=== PATIENT | female | born 1990 | race Two or more races ===

== ENCOUNTER 2021-06-25 09:19 | Observation (INO) | payer MEDICAID ==
[~2021-06-25] VITALS: Ht 170.2 cm; Wt 95.3 kg
[2021-06-25] MEDS ORDERED: PREN-96 PO (10:40)
== END 2021-06-25 13:41 | disposition home or self-care (01) ==
LOC: XYW 09:19 → LDRP 10:10
PROVIDERS: ADMIT Obstetrics & Gynecology; ATTEND Obstetrics & Gynecology
DX: O62.9 Abnormality of forces of labor, unspecified (principal); Z3A.36 36 weeks gestation of pregnancy
CPT/HCPCS: 59025; 76818; 81002; 93306; 94760; G0378; G0379

== ENCOUNTER 2021-07-12 23:38 | Observation (INO) | payer MEDICAID ==
[~2021-07-12] VITALS: Ht 170.2 cm; Wt 96.6 kg
[~2021-07-12 23:38] MED LIST: PREN-96 PO
== END 2021-07-13 00:30 | disposition home or self-care (01) ==
LOC: LDRP 23:38
PROVIDERS: ADMIT Obstetrics & Gynecology; ATTEND Obstetrics & Gynecology
DX: O62.9 Abnormality of forces of labor, unspecified (principal); Z3A.38 38 weeks gestation of pregnancy
CPT/HCPCS: 59025; 81002; 94760; G0378

== ENCOUNTER 2021-07-21 11:06 | Observation (INO) | payer MEDICAID ==
[~2021-07-21] VITALS: Ht 30.5 cm; Wt 0.5 kg
[2021-07-21] MEDS ORDERED: LACTATED RINGER'S 1,000 ML IV ONE (14:45)
[2021-07-21 15:25] LABS: Urine WBC None Seen /hpf (0 - 5)
[2021-07-21 15:36] LABS: Urine Bacteria NONE SEEN /hpf (None Seen); Urine Blood Negative /uL (Negative); Urine Specific Gravity 1.001 (1.001-1.035)
[2021-07-21 15:50] LABS: Alcohol, Urine < 3.0 mg/dL (0-10); Amphetamine Screen, Urine NEGATIVE (NEGATIVE); Barbiturate Scree,Urine NEGATIVE (NEGATIVE); Benzodiazephine Screen, Urine NEGATIVE (NEGATIVE); Cannabinoid Screen, Urine NEGATIVE (NEGATIVE); Cocaine Screen, Urine NEGATIVE (NEGATIVE); Opiate Scree,Urine NEGATIVE (NEGATIVE); Phencyclidine Screen, Urine NEGATIVE (NEGATIVE)
[2021-07-21 15:56] LABS: Basophils # (auto) 0 10 ^3/uL (0-0.2); Basophils % (auto) 0.7 % (0.0-2.0); Eosinophils # (auto) 0.1 10 ^3/uL (0-0.8); Hematocrit 32.4 % (36.0-46.0); Hemoglobin 11.3 g/dL (12.2-16.2); Lymphocytes # (auto) 1.6 10 ^3/uL (0.4-5.4); Lymphocytes % (auto) 22.8 % (10.0-50.0); Mean Corpuscular Hemoglobin 27.5 pg (28.0-32.0); Mean Corpuscular Hgb Conc. 34.9 g/dL (32.0-36.0); Mean Corpuscular Volume 78.7 fL (80.0-100.0); Monocytes # (auto) 0.3 10 ^3/uL (0-1.3); Monocytes % (auto) 4.6 % (0.0-12.0); Neutrophils # (auto) 4.9 10 ^3/uL (1.6-8.6); Neutrophils % (auto) 70.9 % (37.0-80.0); Nucleated Red Blood Cells % 0.1 %; Red Blood Cells 4.12 10^6/uL (4.0-5.20); Red Cell Distribution Width 15.1 % (11.8-14.3); White Blood Cell 6.9 10^3/uL (4.4-10.8)
[2021-07-21 16:12] LABS: Albumin 2.5 g/dL (3.4-5.0); Calcium 8.5 mg/dL (8.5-10.1)
[2021-07-21 16:15] LABS: Bilirubin, Total 0.3 mg/dL (0.2-1.0)
[2021-07-21 16:21] LABS: INR 0.97 (0.9-1.15); Partial Thromboplastin Time 27.6 sec (23.6-33.0)
[2021-07-22 06:06] LABS: RPR Non Reactive (Non Reactive)
== END 2021-07-21 16:24 | disposition home or self-care (01) ==
LOC: LDRP 11:06
PROVIDERS: ADMIT Obstetrics & Gynecology; ATTEND Obstetrics & Gynecology
DX: O42.92 Full-term premature rupture of membranes, unspecified as to length of time between rupture and onset of labor (principal); O62.9 Abnormality of forces of labor, unspecified; O48.0 Post-term pregnancy; Z3A.40 40 weeks gestation of pregnancy; Z79.899 Other long term (current) drug therapy; Z98.890 Other specified postprocedural states
CPT/HCPCS: 36415; 76818; 80053; 80307; 81001; 84112; 85025; 85610; 85730; 86592; 86850; 86900; 86901; 87426; G0378; Q0114

== ENCOUNTER 2021-07-23 08:47 | Observation (INO) | payer MEDICAID | END 2021-07-23 13:10 | disposition home or self-care (01) | LOC: LDRP 10:52 | PROVIDERS: ADMIT Obstetrics & Gynecology; ATTEND Obstetrics & Gynecology | DX: O62.9 Abnormality of forces of labor, unspecified (principal); O48.0 Post-term pregnancy; O26.893 Other specified pregnancy related conditions, third trimester; D72.829 Elevated white blood cell count, unspecified; Z3A.40 40 weeks gestation of pregnancy | CPT/HCPCS: 59025; 76818; 81002; G0378 ==

== ENCOUNTER 2021-07-24 21:13 | Inpatient (IN) | payer MEDICAID ==
[~2021-07-24] VITALS: Ht 170.2 cm; Wt 97.1 kg
[2021-07-24] MEDS ORDERED: LIDOCAINE 2%HCL (LOCAL ANESTH.) INJ 20ML MDV IJ PRN (21:30)
[2021-07-24] MEDS ORDERED: PHISODERM TOP SOLN 240ML BTL TOP PRN (21:30)
[2021-07-24] MEDS ORDERED: BUTORPHANOL TARTRATE 2 MG/1 ML VIAL IV PRN ×2 (21:30)
[2021-07-24] MEDS ORDERED: DERMOPLAST 60ML BOTTLE TOP PRN (21:30)
[2021-07-24] MEDS ORDERED: WITCH HAZEL-GLYCERIN PAD TOP PRN (21:30)
[2021-07-24] MEDS ORDERED: PROMETHAZINE HCL 25 MG/ML 1ML IV PRN (21:30)
[2021-07-24] MEDS ORDERED: PENICILLIN G POT 5MIL/D5 50ML 50 ML IV ONE (22:00)
[2021-07-24 22:19] LABS: Basophils # (auto) 0 10 ^3/uL (0-0.2); Eosinophils # (auto) 0.1 10 ^3/uL (0-0.8); Hemoglobin 11.6 g/dL (12.2-16.2); Lymphocytes # (auto) 2.1 10 ^3/uL (0.4-5.4); Monocytes # (auto) 0.4 10 ^3/uL (0-1.3); Neutrophils # (auto) 5.3 10 ^3/uL (1.6-8.6); White Blood Cell 7.9 10^3/uL (4.4-10.8)
[2021-07-24 22:21] LABS: Basophils % (auto) 0.6 % (0.0-2.0); Eosinophils % (auto) 1.3 % (0.0-7.0); Lymphocytes % (auto) 26.6 % (10.0-50.0); Mean Corpuscular Hemoglobin 27.7 pg (28.0-32.0); Mean Corpuscular Hgb Conc. 35.3 g/dL (32.0-36.0); Mean Corpuscular Volume 78.7 fL (80.0-100.0); Monocytes % (auto) 5.1 % (0.0-12.0); Neutrophils % (auto) 66.4 % (37.0-80.0); Nucleated Red Blood Cells % 0.1 %
[2021-07-24 22:34] LABS: INR 0.95 (0.9-1.15); Partial Thromboplastin Time 27.7 sec (23.6-33.0)
[2021-07-24 22:38] LABS: Albumin 2.5 g/dL (3.4-5.0); BUN/Creatinine Ratio 17.7; Calcium 8.5 mg/dL (8.5-10.1); Potassium 3.5 mmol/L (3.5-5.1)
[2021-07-24 22:41] LABS: Bilirubin, Total 0.2 mg/dL (0.2-1.0); Total Protein 6.7 g/dL (6.4-8.2)
[2021-07-24 22:42] LABS: Urine Bacteria FEW /hpf (None Seen); Urine Blood Negative /uL (Negative); Urine Specific Gravity 1.012 (1.001-1.035); Urine WBC 7 /hpf (0 - 5)
[2021-07-24 22:52] LABS: Alcohol, Urine < 3.0 mg/dL (0-10); Amphetamine Screen, Urine NEGATIVE (NEGATIVE); Barbiturate Scree,Urine NEGATIVE (NEGATIVE); Benzodiazephine Screen, Urine NEGATIVE (NEGATIVE); Cannabinoid Screen, Urine NEGATIVE (NEGATIVE); Cocaine Screen, Urine NEGATIVE (NEGATIVE); Opiate Scree,Urine NEGATIVE (NEGATIVE); Phencyclidine Screen, Urine NEGATIVE (NEGATIVE)
[2021-07-24] MEDS: LACTATED RINGER'S 1,000 ML IV SCH (23:00)
[2021-07-25] MEDS: PENICILLIN G POTASSIUM 2,500,000 UNITS in D5W 5% 50 ML IV SCH ×5 (02:26→20:43)
[2021-07-25] MEDS: LACTATED RINGER'S 1,000 ML IV SCH (04:35)
[2021-07-25] MEDS ORDERED: LACTATED RINGER'S 1,000 ML IV ONE (05:15)
[2021-07-25] MEDS ORDERED: NALOXONE HCL 0.4 MG/ML VIAL IV ONE ×2 (05:15→18:15)
[2021-07-25] MEDS ORDERED: SODIUM CHLORIDE 0.9% 500 ML IV PRN (05:15)
[2021-07-25] MEDS ORDERED: ePHEDrine SULFATE 50 MG/ML AMP IV ONE ×2 (05:15→18:15)
[2021-07-25] MEDS ORDERED: ROPIVACAINE HCL 200 ML EPI SCH ×3 (05:15→18:15)
[2021-07-25] MEDS: miSOPROStol 50 MCG per PRE-CUT 1/2 TAB PO PRN ×2 (16:58)
[2021-07-25] MEDS ORDERED: LIDOCAINE HCL 2 %PF INJ 10ML AMP IJ ONE ×3 (17:42→18:15)
[2021-07-25] MEDS ORDERED: fentaNYL CITRATE 100 MCG/2 ML VL ONE (17:42)
[2021-07-25] MEDS ORDERED: fentaNYL CITRATE 100 MCG/2 ML VL IV ONE ×2 (18:15)
[2021-07-25] MEDS ORDERED: LACT. RINGERS/OXYTOCIN 20UNITS 500 ML IV ONE ×2 (19:15→19:45)
[2021-07-25] MEDS ORDERED: LACT. RINGERS/OXYTOCIN 20UNITS 1,000 ML IV SCH (21:00)
[2021-07-26] MEDS: PENICILLIN G POTASSIUM 2,500,000 UNITS in D5W 5% 50 ML IV SCH (00:45)
[2021-07-26 03:30] VITALS: BP 119/56
[2021-07-26] MEDS ORDERED: ACETAMINOPHEN 325 MG TAB PO PRN (04:15)
[2021-07-26] MEDS ORDERED: ONDANSETRON ODT 4 MG TAB PO PRN (04:15)
[2021-07-26] MEDS: IBUPROFEN 600 MG TAB PO PRN ×3 (04:23→18:56)
[2021-07-26] MEDS ORDERED: ROPIVACAINE HCL 200 ML EPI SCH (05:30)
[2021-07-26 07:20] VITALS: BP 90/50
[2021-07-26 09:06] LABS: RPR Non Reactive (Non Reactive)
[2021-07-26 11:20] VITALS: BP 113/55
[2021-07-26 15:20] VITALS: BP 106/60
[2021-07-26 18:45] VITALS: BP 107/68
[2021-07-26] MEDS ORDERED: DOCUSATE SOD 100 MG CAP PO SCH (22:00)
[2021-07-26 22:50] VITALS: BP 106/67
[2021-07-27 03:00] VITALS: BP 104/58
[2021-07-27 07:15] VITALS: BP 112/67
== END 2021-07-27 08:27 | disposition home or self-care (01) | DRG 560 ==
LOC: LDRP 21:13
PROVIDERS: ADMIT Obstetrics & Gynecology; ATTEND Obstetrics & Gynecology
PROC: 3E0DXGC Introduction of Other Therapeutic Substance into Mouth and Pharynx, External Approach (ICD-10-PCS; 2021-07-24)
PROC: 10E0XZZ Delivery of Products of Conception, External Approach (ICD-10-PCS; principal; 2021-07-26)
PROC: 0KQM0ZZ Repair Perineum Muscle, Open Approach (ICD-10-PCS; 2021-07-26)
DX: O48.0 Post-term pregnancy (principal); Z37.0 Single live birth; O70.1 Second degree perineal laceration during delivery; O99.824 Streptococcus B carrier state complicating childbirth; Z3A.40 40 weeks gestation of pregnancy; Z20.822 Contact with and (suspected) exposure to COVID-19
CPT/HCPCS: 36415; 59025; 59409; 62282; 80053; 80307; 81001; 81002; 85025; 85610; 85730; 86592; 86850; 86900; 86901; 87426; 94760; 96360; 96361; 96365; 96366; G0378; J2540; J2590; J7060